=== PATIENT | female | born 1945 | race Caucasian/White ===

== ENCOUNTER 2017-01-26 17:55 | Emergency (ER) | payer OTHER ==
[2017-01-26] MEDS: PHENAZOPYRIDINE HCL 200 MG TABLET PO ONE (18:25)
[2017-01-26] MEDS: CIPROFLOXACIN HCL 500 MG TABLET PO ONE (18:25)
--- NOTE | 2017-01-26 18:45 | ED Physician Documentation ---
Female Urogenital Problems - HISTORIAN Historian: patient - HPI Stated Complaint: Urinary Symptoms Chief Complaint: Female Urogenital Problems Onset: hours (this morning) Severity: moderate Further Comments: yes (71 year old female patient presents with complaint of blood in her urine, dysuria and frequency. Patient also complains of "stuff in the back of my throat", sore mouth and swollen lips. Patient states her chronic cough has been worse the past 2 weeks. Two weeks ago patient decreased her omeprazole to daily and started using apple cider vinegar for her GERD. C/ O cough being worse the past 2 weeks, "cough so hard I almost throw up".) - Associated Symptoms Urinary Symptoms: blood in urine, frequent urination, discomfort w/ urination Discharge: denies: vaginal discharge - ROS CONST: none GI/: denies: nausea, vomiting, diarrhea CVS/RESP: cough. denies: chest pain, shortness of breath EYES/ENT: sore throat. denies: problems with vision NEURO/PSYCH: none MS/SKIN/LYMPH: none - PAST HX Past History: other (GERD - scope 1 year ago) Other History: diabetes Type 2, hypertension, other (HLD, hypothyroidism) Allergies/Adverse Reactions: Allergies Allergy/AdvReac Type Severity Reaction Status Date / Time codeine Allergy Verified 01/26/17 18:19 Sulfa (Sulfonamide Allergy Verified 01/26/17 18:19 Antibiotics) Home Medications: Ambulatory Orders Medication Instructions Recorded Atenolol [Tenormin] 25 mg PO DAILY 01/26/17 Glimepiride [Glimepiride] 1 mg PO DAILY 01/26/17 Levothyroxine Sodium [Synthroid] 50 mcg PO DAILY 01/26/17 Omeprazole [Omeprazole] 20 mg PO DAILY 01/26/17 Pravastatin Sodium [Pravachol] 20 mg PO HS 01/26/17 - SOCIAL HX Smoking History: non-smoker - FAMILY HX Family History: denies: none - VITAL SIGNS Vital Signs: Vital Signs Temp Pulse Resp BP Pulse Ox 99 H 18 113/68 97 01/26/17 17:55 01/26/17 17:55 01/26/17 17:55 01/26/17 17:55 - REVIEWED ASSESSMENTS Nursing Assessment Reviewed: Yes Vitals Reviewed: Yes Progress - Progress Progress: Patient states she has not discussed her cough with Dr Ribera, last chest xray 1 year ago. Instructed patient to stop apple cider vinegar, increase her omeprazole back to 40mg po qd. Encouraged her to add lactobacillus high food to her diet, follow bland diet for the next 2 weeks. Will chest lab and chest xray. ED Results Lab/Radiology - Radiology Radiology Impressions: Chest PA and lateral views Clinical history: Cough for 2 weeks Normal heart shadow and mediastinum. Clear lungs without acute infiltrate or pleural effusion. Normal bony thorax. No pneumothorax. Impression: No active pulmonary pathology. Electronically signed on Jan 26, 2017 7:00:47 PM [employer] OWNER by: Lefty Saucedo - Orders Orders: ED Orders Category Date Time Status CHEST 2 VIEW [CHEST P.A.&LAT 2 VIEWS] [RAD] Stat Exams 01/26/17 Ordered CBC/PLATELET/DIFF Stat Lab 01/26/17 18:34 Ordered CMP Stat Lab 01/26/17 18:34 Ordered Ciprofloxacin HCl [Cipro] Med 01/26/17 18:19 Discontinued 500 mg PO NOW ONE Phenazopyridine HCl [Pyridium] Med 01/26/17 18:21 Discontinued 200 mg PO NOW ONE Female Urogenital Problems - EXAM General Appearance: mild distress EENT: eye inspection normal, pharynx normal, no signs of dehydration, YAS, no nystagmus, TM's nml, other (white coated tongue, no sinus tenderness). No: purulent nasal drainage Neck: nml inspection Respiratory: no resp. 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
[2017-01-26 19:12] LABS: BASOPHILS % 0.5 (0.0-1.5); EOSINOPHILS % 2.6 % (0.0-6.8); MEAN CORPUSCULAR HEMOGLOBIN 30.4 pg (28.0-34.0); MEAN CORPUSCULAR VOLUME 96.8 fl (80.0-100.0); MONOCYTES % 4.3 % (0.0-11.0); NEUTROPHILS # 11.7 # k/uL (1.4-7.7)
[2017-01-26 19:34] LABS: eGFR (African) > 60; eGFR (Non-African) > 60
[2017-01-26 20:04] VITALS: BP 126/58
--- NOTE | 2017-01-26 23:00 | Diagnostic Imaging Report ---
MAT GONZALEZ (BRANDO) - FELECIA [facility] [address] [address] Report Submission Date: Jan 26, 2017 7:00:47 PM PHYSICAL THERAPIST CLINIC DIRECTOR Patient Study Name: SHANNON JEAN Date: Jan 26, 2017 6:48:17 PM PHYSICAL THERAPIST CLINIC DIRECTOR Modality Type: CR Gender: F Description: CHEST : 45 Institution: [facility] Physician: MAT GONZALEZ) - FELECIA Chest PA and lateral views Clinical history: Cough for 2 weeks Normal heart shadow and mediastinum. Clear lungs without acute infiltrate or pleural effusion. Normal bony thorax. No pneumothorax. Impression: No active pulmonary pathology. Electronically signed on Jan 26, 2017 7:00:47 PM PHYSICAL THERAPIST CLINIC DIRECTOR by: Lefty PLASENCIA
[2017-01-26 23:46] LABS: APPEARANCE,URINE CLOUDY (CLEAR); COLOR,URINE RED (YELLOW); OCCULT BLOOD,URINE 3+ (NEGATIVE)
== END 2017-01-26 19:40 | disposition home or self-care (01) ==
LOC: ED 17:55
DX: R31.9 Hematuria, unspecified (principal)
CPT/HCPCS: 71020; 80053; 81002; 85025; 87086; 99283

== ENCOUNTER 2017-02-22 11:01 | Outpatient (CLI) | payer OTHER ==
--- NOTE | 2017-02-22 13:06 | Diagnostic Imaging Report ---
JERED MORENO [facility] [id number] [facility] [address] [address] Report Submission Date: Feb 22, 2017 11:44:21 AM PLASTIC MANAGER Patient Study Name: SHANNON JEAN Date: Feb 22, 2017 11:14:29 AM PLASTIC MANAGER Modality Type: US Gender: F Description: US ABD LIMITED : 45 Institution: [facility] Physician: JERED MORENO Examination: Ultrasound gallbladder History: Epigastric discomfort Findings: Sonographic evaluation of the right upper quadrant demonstrates the gallbladder without stones or sludge. Gallbladder wall measures 1.5 mm. Common bile duct measures 4.2 mm. No intrahepatic biliary dilation. Liver demonstrates mildly increased echogenicity. No mass or cyst. Normal flow on color analysis. Normal portal vein Doppler waveforms. Right kidney measures 10.5 cm in length. No cortical mass or cyst. No hydronephrosis. Pancreatic region without gross irregularity. Impression: No gallstone or obstruction. Mild fatty infiltration of liver. Electronically signed on Feb 22, 2017 11:44:21 AM PLASTIC MANAGER by: Vlad PLASENCIA
== END 2017-02-22 11:02 ==
LOC: RAD 11:01
PROVIDERS: ATTEND Family Medicine
DX: R79.89 Other specified abnormal findings of blood chemistry (principal)
CPT/HCPCS: 76705